=== PATIENT | female | born 1985 | race Hispanic/Latino ===

== ENCOUNTER 2017-03-21 15:42 | Inpatient (IN) | payer OTHER ==
[2017-03-21] VITALS (13 sets, daily range): BP systolic 93–131; BP diastolic 56–76
[~2017-03-21] VITALS: Ht 160 cm; Wt 100.0 kg
[~2017-03-21 15:42] MED LIST: ACET50TA PO; MOTR200T44 PO; TYLE325T5 PO
[2017-03-21] MEDS ORDERED: PRENTAB9 PO (16:01)
[2017-03-21] MEDS ORDERED: LR 1,000 ML IV SCH (17:39)
[2017-03-21] MEDS ORDERED: OXYTOCIN DRIP 30 UNITS in APPROPRIATE DILUENT 1 EA IV SCH (17:45)
[2017-03-21 17:57] LABS: MEAN CORPUSCULAR HGB CONC 32.3 g/dl (32.0-36.5); MEAN CORPUSCULAR VOLUME 93.1 fl (80.0-96.0); PLATELET COUNT, AUTOMATED 246 10^3/uL (150-450); RED CELL DISTRIBUTION WIDTH 14.9 % (11.5-14.5); WHITE BLOOD COUNT 7.9 10^3/uL (4.0-10.0)
--- NOTE | 2017-03-21 18:07 | HPEPDOC ---
Obstetrical History & Physical General Date of Admission Mar 21, 2017 at 15:42 History of Present Illness 31 yo presents to L&D for scheduled IOL @ 41+0 by LMP([id number]) and 9+ 1 wk US on [id number] for pending post-dates. Reports feeling some CTXs. Denies DFM, LOF, and VB. GBS negative Chief Complaint: Induction of labor (pending post-dates) Information Provided By: Patient Age: 31 : 5 Term: 3 Pre-term: 0 Abortions: 1 Livin Care Care: Good Care Number of Visits: 11 Dating Final EDC: Mar 14, 2017 Final EDC for Daily Update: Mar 14, 2017 Final EDC by: LMP LMP: Jun 07, 2016 1st Trimester Date: Aug 14, 2016 Weeks + Days: 9.1 Estimated Date of Confinement: Mar 14, 2017 EGA at Admission: 41.0 Antepartum Course Diagnos(e)s 1. BMI- 35- early 1 hour GTT- 2. hx shoulder dystocia- 3. closely spaced 4. 1 hour 152- 3 hour 89/136/109/91 5. HC:AC decreased- increased risk of shoulder dystocia 6. excessive wt gain Height (inches): 63 Pre- weight (lbs.): 193 Admission Weight (lbs.): 219 Change in Weight (lbs.): 25 Past Medical History Past Obstetrical History #1: Past Obstetrical History: Multigravida Date of Delivery: Apr 16, 2005 Gestation: 40 Type of Delivery: Spontaneous Vaginal Del. Sex of : Male Weight of (grams): 3487 Complications: No Past Obstetrical History #2: Past Obstetrical History: Multigravida Date of Delivery: Dec 22, 2013 Gestation: 41 Type of Delivery: Spontaneous Vaginal Del. Sex of Infant: Male Weight of Infant (grams): 3969 Complications: No Past Obstetrical History #3: Date of Delivery: Mar 18, 2016 Gestation: 41 Type of Delivery: Spontaneous Vaginal Del. 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 Past Medical History Medical History Depression- temporary Surgical History: [place] teeth Family History Significant Family History: No pertinent family hx Social History Marital Status: Family situation: Spouse/partner home Psychosocial History: No pertinent psych hx * Smoker: non-smoker Alcohol: Denies Abuse Violence Screening Have you been hit/kicked/slapp: No Have you been sexually assault: No Imunizations Tdap status: current ([id number]) Influenza Status: declined Allergies Coded Allergies: No Known Allergies (Unverified , 11/20/13) Medications Scheduled Multivitamins/ ( 27-0.8 mg) 1 Tab Tab, 1 TAB PO DAILY Physical Examination Physical Examination GENERAL: A&O x 3 BREAST: . ABDOMEN: Gravid and non-tender to touch. FETUS: VTX by Bipin and SVE HEART RATE: RRR, no m/r/g LUNGS: CTA EXTREMITIES: No edema. No clonus. DTRs +1 EFW-4000 grams Vital Signs/I&O Vital Signs Date Time Temp Pulse Resp B/P (MAP) Pulse Ox O2 Delivery O2 Flow Rate FiO2 03/21/17 16:05 98.2 90 18 103/60 (74) Pertinent Laboratoy Data Blood Type: O+ RBC Antibody Screen: Negative HIV: Negative Hepatitis B: Negative Hepatitis C: Unknown Rapid Plasma Reagin: Nonreactive Rubella: Immune Varicella: Immune Chlamydia/Gonorrhea: Negative Group B Streptococcus: Negative Quad Screen Test: Negative Glucose Tolerance Test: 152 Anatomy Ultrasound Ultrasound Date: Oct 26, 2016 Placenta Location: Posterior Normal Anatomy: Yes Placenta Previa: No Estimated Weight (grams): 394 Other Ultrasounds [id number]- HC:AC reduced, [id number]-682 grams [id number]- AC 90%, considerable larger than expected, [id number]-2639 grams [id number]- HC:AC in normal range, [id number]-3648 grams, 85% Steroid Therapy Steroid Therapy: No ( ) Vaginal Examination Dilation: 2cm Effacement: 40-50% Station: -2 Cervical Consistency: Medium Cervical Position: Middle Presentation: Cephalic presentation Position: Vertex (occiput) Assessment Heart Rate (FHR): 135 Variability: Moderate Accelerations: Positive Decelerations: None Tocometer Contractions: Yes Frequency: regular, other (Q 4-6 min) Duration: greater than 90 seconds Strength: palpated as moderate, resting tone palp/soft Multi-drug resistant Organism: No history of MDRO Assessment/Plan Assessment 31 yo presents to L&D for scheduled IOL @ 41+0 by LMP([id number]) and 9+ 1 wk US on [id number] for pending post-dates. CAT I FHR tracing. Reports feeling some CTXs. Denies DFM, LOF, and VB. GBS negative Plan Admit and orient. 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 Diet: Regular GBS negative Labs and IV per protocol Counseled on Pitocin IOL LR 125 ml/hr once pitocin is started Anticipate C-S as appropriate. Report to Dr. Vigil @ 0. Plan for SVE @ 2029 PORSCHE BARTLETT CNM Mar 21, 2017 18:07
--- NOTE | 2017-03-21 21:20 | IPNPDOC ---
Text Note Date of Service The patient was seen on 03/21/17. NOTE assumed care at 1930 SBAR from [facility] You IOL for postdates. Prior shoulder dystocia with third and last child, <2 min, no injury to the baby. Slightly decreased HC:Increased AC, MFM notes reviewed. Pitocin started 1-2 hrs ago. Plan on check in 1-2 hrs, sooner prn. Sessions VS,Gianni, I+O VSGianni I+O Laboratory Tests 03/21/17 17:46 Red Blood Count 4.03, Mean Corpuscular Volume 93.1, Mean Corpuscular Hemoglobin 30.0, Mean Corpuscular Hemoglobin Concent 32.3, Red Cell Distribution Width 14.9 H Vital Signs Date Time Temp Pulse Resp B/P (MAP) Pulse Ox O2 Delivery O2 Flow Rate FiO2 03/21/17 16:05 98.2 90 18 103/60 (74) SESSIONS,TATYANA Corrales MD Mar 21, 2017 21:20
[2017-03-21] MEDS ORDERED: FENTANYL 2MCG/ML ROPIVACAINE 0.2% IN 0.9% NACL 200ML IVBAG As Ordered ONE (21:27)
--- NOTE | 2017-03-21 23:35 | IPNPDOC ---
Text Note Date of Service The patient was seen on 03/21/17. NOTE On 4 mu/min pitocin with reg, painful ctx's FHT Cat 1 Cx 4/-2 OK for epidural recheck in ~2 hrs, sooner prn Sessions VS,Gianni, I+O VS, Gianni I+O Laboratory Tests 03/21/17 17:46 Red Blood Count 4.03, Mean Corpuscular Volume 93.1, Mean Corpuscular Hemoglobin 30.0, Mean Corpuscular Hemoglobin Concent 32.3, Red Cell Distribution Width 14.9 H Vital Signs Date Time Temp Pulse Resp B/P (MAP) Pulse Ox O2 Delivery O2 Flow Rate FiO2 03/21/17 22:23 76 18 114/67 (83) 03/21/17 19:45 99.4 SESSIONS,TATYANA Corrales MD Mar 21, 2017 23:35
[2017-03-21] MEDS ORDERED: ONDANSETRON 4MG/2ML VIAL (J2405) IV PRN (23:53)
[2017-03-21] MEDS ORDERED: REFRIGERATOR IV KEYS XX PRN (23:53)
[2017-03-21] MEDS ORDERED: NALOXONE INJ 0.4 MG/1 ML VIAL (J2310) IV PRN (23:53)
[2017-03-21] MEDS ORDERED: EPIDURAL/PCA KEYS XX PRN (23:53)
[2017-03-21] MEDS ORDERED: EPIDURAL COMMENT XX SCH (23:53)
[2017-03-21] MEDS ORDERED: diphenhydrAMINE INJ 50MG/ML VIAL (J1200) IV PRN (23:53)
[2017-03-21] MEDS ORDERED: ePHEDrine SULFATE 25 MG/5 ML(5MG/ML) SYRINGE IV PRN (23:53)
[2017-03-21] MEDS ORDERED: LACTATED RINGER'S 1000 ML IV PRN (23:53)
[2017-03-21] MEDS ORDERED: FENTANYL/ROPIVACAINE/NACL BAG 200 ML EPIDURAL SCH (23:53)
[2017-03-22] VITALS (23 sets, daily range): BP systolic 85–145; BP diastolic 49–65
--- NOTE | 2017-03-22 03:41 | IPNPDOC ---
Text Note Date of Service The patient was seen on 03/22/17. NOTE On 8 mu/min pitocin NST Cat 1, reg ctx's 5/75/-1/vtx well applied, AROM with clr fluid Recheck in 2-3 hrs, sooner prn Sessions VS,Gianni, I+O VSGianni, I+O Laboratory Tests 03/21/17 17:46 Red Blood Count 4.03, Mean Corpuscular Volume 93.1, Mean Corpuscular Hemoglobin 30.0, Mean Corpuscular Hemoglobin Concent 32.3, Red Cell Distribution Width 14.9 H Vital Signs Date Time Temp Pulse Resp B/P (MAP) Pulse Ox O2 Delivery O2 Flow Rate FiO2 03/22/17 03:18 72 18 98/55 (69) 03/22/17 00:10 99.2 SESSIONS,TATYANA Corrales MD Mar 22, 2017 03:41
[2017-03-22] MEDS ORDERED: OXYTOCIN DRIP 30 UNITS in APPROPRIATE DILUENT 1 EA IV SCH (05:50)
[2017-03-22] MEDS ORDERED: ACETAMINOPHEN TAB 650MG DOSE (2X325MG) PO PRN (06:00)
[2017-03-22] MEDS ORDERED: METOCLOPRAMIDE INJ 10MG/2ML VIAL (J2765) IV PRN (06:00)
[2017-03-22] MEDS ORDERED: MEASLES,MUMPS,RUBELLA VACCINE INJ (MMR-II) (90707) SC SCH (06:00)
[2017-03-22] MEDS ORDERED: DIBUCAINE 1% OINTMENT 30GM TOP PRN (06:00)
[2017-03-22] MEDS ORDERED: RHOGAM 300 MCG (1500 IU) INJ (J2790) IM SCH (06:00)
--- NOTE | 2017-03-22 06:03 | DNPDOC ---
[facility] [place] Delivery Note Delivery Note DATE OF DELIVERY: [id number] @ 0532 PREDELIVERY DIAGNOSIS: 41 1/7 weeks' gestation and labor. POST DELIVERY DIAGNOSIS: Delivered. 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 FINDINGS: 9 pound 13 ounce male , Score 8/9, nuchal cord times 1, loose DELIVERY SUMMARY: Pushed very well and delivery was slighlty JAKE with horizontal shoulders, right shoulder just slightly more anterior than horizontal , no delay of either shoulder. Vigorous infant to abdomen. Cord C/C by FOB. Cord blood. Placenta intact with slight traction, fundal massage, pit going 999. 1st degre per lac repaired in standard fashion with 3-0 vicryl. Good cosmesis/hemostasis. GUANAKITO,TATYANA Corrales MD Mar 22, 2017 06:03
[2017-03-22] MEDS: PRENATAL VITAMINS CHEWABLE TABLET PO SCH (09:00)
[2017-03-22] MEDS: DOCUSATE SODIUM 100 MG CAP PO SCH ×2 (09:22→19:47)
[2017-03-22] MEDS: IBUPROFEN 800 MG TAB PO PRN ×2 (11:18→19:47)
[2017-03-23 06:00] VITALS: BP 95/60
[2017-03-23] MEDS: DOCUSATE SODIUM 100 MG CAP PO SCH (08:09)
[2017-03-23] MEDS: PRENATAL VITAMINS CHEWABLE TABLET PO SCH (08:10)
[2017-03-23] MEDS: IBUPROFEN 800 MG TAB PO PRN (09:47)
--- NOTE | 2017-03-23 10:35 | IPNPDOC ---
Progress Note Date of Service The patient was seen on 03/23/17 at 10:30. Progress Note Krystina is a 31yo [id number] s/p uncomplicated on 03/22 at 0532 after undergoing IOL for LTG at 41w1d. PPD 1. Lochia is minimal. Has cramping well controlled with motrin. Breast feeding without problem. tolerating regular diet , ambulating, voiding spontaneously. Denies f/c/n/v/SOB/CP. OBJECTIVE: PHYSICAL EXAMINATION: VITAL SIGNS wnl, afebrile General: WDWN, obese female, NAD, sitting comfortably Abdomen: soft, ND, NT, uterine fundus firm at u-2cm ASSESSMENT: Krystina is a 31yo [id number] s/p uncomplicated on 03/22 at 0532 after undergoing IOL for LTG at 41w1d. Doing well, day #1. Hemodynamically stable with no evidence of infection. Desiring discharge, meeting all milestones. PLAN: Discharge or plans for: today, to home Return for fever, pain or bleeding. control plans: minipill for now, then BTL Followup plans: 6-week PP visit at [facility] Has home meds: colace, motrin, lanolin, minipill Dr. Luz Bethea MD VS, I&O, 24H, Fishbone Vital Signs/I&O Vital Signs Date Time Temp Pulse Resp B/P (MAP) Pulse Ox O2 Delivery O2 Flow Rate FiO2 03/23/17 06:00 96.8 77 20 95/60 (72) 98 Room Air Luz Bethea MD Mar 23, 2017 10:35
[2017-03-23] MEDS ORDERED: IBUP-1114 PO (10:37)
[2017-03-23] MEDS ORDERED: COLA100C5 PO (10:37)
--- NOTE | 2017-03-25 16:42 | IPN ---
DATE: 03/24/2017 This patient and her requested circumcision of their male after discussing risks and benefits of circumcision, the medical and the nonmedical indications, penile block and aftercare, signed and witnessed the consent form. We await the pediatricians reply.
== END 2017-03-23 13:05 | disposition home or self-care (01) | DRG 775 ==
LOC: M LDI 15:42 → M OBS 03-22 08:57
PROVIDERS: ADMIT Midwife; ATTEND Obstetrics & Gynecology
PROC: 3E033VJ Introduction of Other Hormone into Peripheral Vein, Percutaneous Approach (ICD-10-PCS; 2017-03-21)
PROC: 10E0XZZ Delivery of Products of Conception, External Approach (ICD-10-PCS; principal; 2017-03-22)
PROC: 0HQ9XZZ Repair Perineum Skin, External Approach (ICD-10-PCS; 2017-03-22)
PROC: 10907ZC Drainage of Amniotic Fluid, Therapeutic from Products of Conception, Via Natural or Artificial Opening (ICD-10-PCS; 2017-03-22)
DX: O48.0 Post-term pregnancy (principal); Z37.0 Single live birth; O26.03 Excessive weight gain in pregnancy, third trimester; Z3A.41 41 weeks gestation of pregnancy; Z68.35 Body mass index [BMI] 35.0-35.9, adult; O69.81X0 Labor and delivery complicated by cord around neck, without compression, not applicable or unspecified; O70.0 First degree perineal laceration during delivery